=== PATIENT | female | born 1950 | race Caucasian/White ===

== ENCOUNTER → 2017-02-26 | Outpatient (CLI) | payer OTHER | LOC: RAD 04:10 | DX: Z12.31 Encounter for screening mammogram for malignant neoplasm of breast (principal) ==

== ENCOUNTER → 2017-10-21 | Outpatient (CLI) | payer OTHER | LOC: CAT 16:33 | DX: Z13.6 Encounter for screening for cardiovascular disorders (principal); I25.10 Atherosclerotic heart disease of native coronary artery without angina pectoris; Z82.49 Family history of ischemic heart disease and other diseases of the circulatory system ==

== ENCOUNTER → 2017-11-30 | Outpatient (CLI) | payer OTHER | LOC: ULTRA 12:38 | DX: N88.8 Other specified noninflammatory disorders of cervix uteri (principal) ==

== ENCOUNTER → 2018-02-09 | Outpatient (CLI) | payer OTHER ==
--- NOTE | ~2018-02-09 | EKG ---
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 : 1950 Requested By: Palak Anaya Order Number: [id number] MD: Benny Alonzo Measurements Intervals [place] Rate: 84 P: 79 [place]: 157 QRS: 61 QRSD: 80 T: -28 QT: 363 QTc: 430 Interpretive Statements Sinus rhythm Right atrial enlargement Abnormal R-wave progression, early transition Nonspecific ST and T wave abnormality Compared to ECG 01/15/1990 09:48:00 Nonspecific change in the ST and T wave abnormality Electronically Signed On 02-09-2018 17:22:07 CDT by Benny Alonzo [email or web address] <ELECTRONICALLY SIGNED> By: Benny Alonzo MD, [facility] 02/09/18 1722 1034 1034 Benny Alonzo MD, [facility] /EPI
--- NOTE | ~2018-02-09 | 2DMMODE ---
[facility] [place] [address] 2 D/M-MODE ECHOCARDIOGRAM Name: SAUL SPENCE Room #: REG CL [facility]#: [id number] Admission: 02/09/18 Attend Phys: Kwesi Romero Discharge: Date of : 50 Date of Service: 02/09/18 1153 Report #: [id number] THIS REPORT FOR: //name// APPROVED REPORT Study performed: 02/09/2018 08:06:52 EXAM: Comprehensive 2D, Doppler, and color-flow Echocardiogram Patient Location: Out-Patient Status: routine BSA: 1.59 HR: 69 bpm BP: 118/72 mmHg Rhythm: NSR Other Information Study Quality: Good Indications Chest pain. 2D Dimensions RVDd: 28.26 mm IVSd: 6.24 (7-11mm) LVOT Diam: 20.19 (18-24mm) LVDd: 43.18 mm PWd: 6.06 (7-11mm) Ascending Ao: 26.58 (22-36mm) LVDs: 26.43 (25-40mm) Aortic Root: 27.39 mm Volumes Left Atrial Volume (Systole) Single Plane 4CH: 26.36 mL Single Plane 2CH: 28.50 mL LA ESV Index: 19.00 mL/m2 Aortic Valve AoV Peak Toni.: 1.42 m/s AO Peak Gr.: 8.08 mmHg LVOT Max P.02 mmHg LVOT Max V: 1.00 m/s NANCY Vmax: 2.26 cm2 Mitral Valve E/A Ratio: 1.4 MV Decel. Time: 203.00 ms MV E Max Toni.: 0.99 m/s [facility] [address] [place] [address] 2 D/M-MODE ECHOCARDIOGRAM Name: SAUL SPENCE Room #: REG [facility]#: [id number] Admission: 02/09/18 Attend Phys: Kwesi Romero Discharge: Date of : 50 Date of Service: 02/09/18 1153 Report #: [id number] MV A Toni.: 0.70 m/s MV PHT: 58.87 ms IVRT: 83.04 ms Pulmonary Valve PV Peak Toni.: 1.10 m/s PV Peak Gr.: 4.88 mmHg Pulmonary Vein P Vein S: 0.73 m/s P Vein A: 0.41 m/s P Vein D: 0.53 m/s P Vein A Dur.: 115.3 msec P Vein S/D Ratio: 1.38 Tricuspid Valve TR Peak Toni.: 2.64 m/s RAP Estimate: 10.00 mmHg TR Peak Gr.: 27.95 mmHg PA Pressure: 38.00 mmHg Left Ventricle The left ventricle is normal size. There is normal LV segmental wall motion. There is normal left ventricular wall thickness. Left ventricular systolic function is normal. LVEF is 55-60%. The left ventricular diastolic function is normal. Right Ventricle The right ventricle is normal size. The right ventricular systolic function is normal. Atria The left atrium size is normal. The right atrium size is normal. Aortic Valve The aortic valve is normal in structure. No aortic regurgitation is present. There is no aortic valvular stenosis. Mitral Valve The mitral valve is normal in structure. Mild to moderate mitral regurgitation. Tricuspid Valve The tricuspid valve is normal in structure. Mild tricuspid regurgitation. Estimated PAP is 35mmHg. Pulmonic Valve The pulmonary valve is normal in structure. Mild pulmonic regurgitation. [facility] [address] [place] [address] 2 D/M-MODE ECHOCARDIOGRAM Name: SAUL SPENCE Room #: REG [facility].#: [id number] Admission: 02/09/18 Attend Phys: Kwesi Romero Discharge: Date of : 50 Date of Service: 02/09/18 1153 Report #: [id number] Great Vessels The aortic root is normal in size. The ascending aorta is normal in size. IVC is dilated and collapses >50% with inspiration. Pericardium Trivial amount of anterior pericardial fluid noted. <Conclusion> The left ventricle is normal size. LVEF is 55-60%. The aortic valve is normal in structure. The mitral valve is normal in structure. Mild to moderate mitral regurgitation. The tricuspid valve is normal in structure. Mild tricuspid regurgitation. Estimated PAP is 35mmHg. The pulmonary valve is normal in structure. Mild pulmonic regurgitation. Trivial amount of anterior pericardial fluid noted. <ELECTRONICALLY SIGNED> By: Kwesi Mike MD 02/09/18 1153 1153 1153 Kwesi Mike MD /INF
== END ==
LOC: CV 07:35 → NUC 13:18 → CV 13:27
DX: I08.1 Rheumatic disorders of both mitral and tricuspid valves (principal); M54.2 Cervicalgia

== ENCOUNTER → 2018-02-25 | Outpatient (CLI) | payer OTHER | LOC: RAD | DX: Z12.31 Encounter for screening mammogram for malignant neoplasm of breast (principal) ==

== ENCOUNTER → 2018-08-05 | Outpatient (CLI) | payer OTHER | LOC: NUC 10:49 | DX: M81.0 Age-related osteoporosis without current pathological fracture (principal) ==

== ENCOUNTER → 2019-02-14 | Outpatient (CLI) | payer OTHER | LOC: RAD 01:16 | DX: Z12.31 Encounter for screening mammogram for malignant neoplasm of breast (principal) ==

== ENCOUNTER → 2019-08-04 | Outpatient (CLI) | payer OTHER | LOC: SJCVCIMAG 12:00 | DX: I08.3 Combined rheumatic disorders of mitral, aortic and tricuspid valves (principal); I10 Essential (primary) hypertension; Z87.891 Personal history of nicotine dependence ==

== ENCOUNTER → 2019-10-23 | Outpatient (CLI) | payer OTHER | LOC: LAB 07:47 | PROVIDERS: ATTEND Family Medicine | DX: Z03.818 Encounter for observation for suspected exposure to other biological agents ruled out (principal) ==

== ENCOUNTER → 2020-02-19 | Outpatient (CLI) | payer OTHER | LOC: BC 14:50 | PROVIDERS: ATTEND Family Medicine | DX: Z12.31 Encounter for screening mammogram for malignant neoplasm of breast (principal) ==

== ENCOUNTER → 2020-04-08 | Outpatient (CLI) | payer OTHER | LOC: LAB 10:56 | PROVIDERS: ATTEND Family Medicine | DX: Z20.828 Contact with and (suspected) exposure to other viral communicable diseases (principal) ==

== ENCOUNTER → 2020-06-03 | Outpatient (CLI) | payer OTHER ==
[2020-06-03 09:15] LABS: ABSOLUTE NEUTROPHILS 1.9 thou/uL (1.4-8.2); BASOPHILS 0.7 % (0.0-2.0); EOSINOPHILS 2.7 % (0.0-3.0); HEMATOCRIT 38.3 % (37.0-47.0); HEMOGLOBIN 12.5 gm/dL (12.0-15.0); LYMPHOCYTES 31.7 % (24.0-44.0); MCH 29.9 pg (26.0-34.0); MCHC 32.7 g/dL (28.0-37.0); MCV 91.3 fL (80.0-100.0); MONOCYTES 6.5 % (1.0-8.0); PLATELET COUNT 207 thou/uL (150-400); POLYS 58.4 % (36.0-66.0); RBC 4.19 mil/uL (4.20-5.00); WBC 3.2 thou/uL (4.0-11.0)
[2020-06-03 09:35] LABS: ALBUMIN 3.6 g/dL (3.4-5.0); CALCIUM 9.4 mg/dL (8.5-10.1); CREATININE 0.9 mg/dL (0.6-1.0); TOTAL BILIRUBIN 0.4 mg/dL (0.2-1.0); TOTAL PROTEIN 7.1 g/dL (6.4-8.2)
== END ==
LOC: ULTRA 07:26 → LAB 07:26
PROVIDERS: ATTEND Nurse Practitioner
DX: I65.23 Occlusion and stenosis of bilateral carotid arteries (principal); R55 Syncope and collapse

== ENCOUNTER → 2020-07-22 | Outpatient (CLI) | payer OTHER | LOC: NUC 12:57 | PROVIDERS: ATTEND Nurse Practitioner Family | DX: M81.0 Age-related osteoporosis without current pathological fracture (principal) ==

== ENCOUNTER → 2020-11-11 | Outpatient (CLI) | payer OTHER | LOC: SJCVCIMAG 10:14 | PROVIDERS: ATTEND Internal Medicine Cardiovascular Disease | DX: I10 Essential (primary) hypertension (principal); I70.1 Atherosclerosis of renal artery ==

== ENCOUNTER → 2020-11-12 | Outpatient (CLI) | payer OTHER | LOC: CAT 07:17 | PROVIDERS: ATTEND Family Medicine | DX: Z13.6 Encounter for screening for cardiovascular disorders (principal); E78.00 Pure hypercholesterolemia, unspecified; I25.10 Atherosclerotic heart disease of native coronary artery without angina pectoris ==

== ENCOUNTER → 2021-01-09 | Outpatient (CLI) | payer OTHER | LOC: SJCVCIMAG 12-30 10:23 | PROVIDERS: ATTEND Internal Medicine Cardiovascular Disease | DX: I10 Essential (primary) hypertension (principal); R00.2 Palpitations; E78.5 Hyperlipidemia, unspecified ==

== ENCOUNTER → 2021-02-19 | Outpatient (CLI) | payer OTHER | LOC: BC 13:02 | PROVIDERS: ATTEND Obstetrics & Gynecology | DX: Z12.31 Encounter for screening mammogram for malignant neoplasm of breast (principal); N63.13 Unspecified lump in the right breast, lower outer quadrant ==

== ENCOUNTER → 2021-02-21 | Outpatient (CLI) | payer OTHER | LOC: BC 09:03 | PROVIDERS: ATTEND Obstetrics & Gynecology | DX: N63.13 Unspecified lump in the right breast, lower outer quadrant (principal); N64.89 Other specified disorders of breast ==

== ENCOUNTER → 2021-04-04 | Outpatient (CLI) | payer OTHER ==
[2021-04-04 11:51] LABS: ABSOLUTE NEUTROPHILS 1.4 thou/uL (1.4-8.2); BASOPHILS 0.8 % (0.0-2.0); EOSINOPHILS 1.3 % (0.0-3.0); HEMATOCRIT 37.5 % (37.0-47.0); HEMOGLOBIN 12.3 gm/dL (12.0-15.0); LYMPHOCYTES 47.7 % (24.0-44.0); MCH 30.3 pg (26.0-34.0); MCHC 32.7 g/dL (28.0-37.0); MCV 92.8 fL (80.0-100.0); MONOCYTES 7.9 % (1.0-8.0); PLATELET COUNT 188 thou/uL (150-400); POLYS 42.3 % (36.0-66.0); RBC 4.04 mil/uL (4.20-5.00); RDW 14.4 % (10.5-14.5); WBC 3.4 thou/uL (4.0-11.0)
[2021-04-04 12:07] LABS: ALBUMIN 3.9 g/dL (3.4-5.0); ANION GAP 5 mmol/L (7-16); BUN 23 mg/dL (7-18); CALCIUM 9.2 mg/dL (8.5-10.1); CHLORIDE 105 mmol/L (98-107); CHOLESTEROL 196 mg/dL (<200); CO2 30 mmol/L (21-32); CREATININE 0.9 mg/dL (0.6-1.0); GLUCOSE 90 mg/dL (74-106); HDL CHOLESTEROL 75 mg/dL (>40); LDL CHOLESTEROL 112 mg/dL (<100); POTASSIUM 4.2 mmol/L (3.5-5.1); SGOT 26 U/L (15-37); SGPT 40 U/L (30-65); SODIUM 140 mmol/L (136-145); TC:HDL 2.6 Ratio (Not establshd); TOTAL BILIRUBIN 0.4 mg/dL (0.2-1.0); TOTAL PROTEIN 7.1 g/dL (6.4-8.2); TRIGLYCERIDE 45 mg/dL (<150); VLDL 9 mg/dL (<40)
== END ==
LOC: LAB 09:23
PROVIDERS: ATTEND Family Medicine
DX: Z13.220 Encounter for screening for lipoid disorders (principal); Z00.00 Encounter for general adult medical examination without abnormal findings; E03.9 Hypothyroidism, unspecified